=== PATIENT | male | born 2000 | race Caucasian/White ===

== ENCOUNTER 2023-01-14 06:43 | Observation (INO) | payer OTHER ==
[2023-01-14] MEDS ORDERED: Magnesium 5 GM/10 ML VIAL ONE (07:15)
[2023-01-14] MEDS ORDERED: fentaNYL 50 mcg/mL 1 mL Vial ONE ×2 (07:15→09:11)
[2023-01-14] MEDS ORDERED: Oxymetazoline HCl 0.05% (30 ML BOT) ONE ×2 (07:39→12:22)
[2023-01-14] MEDS ORDERED: EPINEPHrine 1 MG/ML AMP ONE (07:46)
[2023-01-14] MEDS ORDERED: Lidocaine 1% (PF) 30 ML VIAL ONE (07:46)
[2023-01-14] MEDS ORDERED: Bacitracin Zinc Ointment 30 gm TUBE ONE (07:46)
[2023-01-14] MEDS ORDERED: Ferric Subsulfate (ASTRINGYN) 8 GM VIAL ONE (07:46)
[2023-01-14] MEDS ORDERED: Succinylcholine 200 MG/10 ml SYRINGE FS ONE (08:00)
[2023-01-14] MEDS ORDERED: PROPOFOL 200 MG/20 ML VIAL ONE (08:00)
[2023-01-14] MEDS ORDERED: Dexamethasone 20 MG/5 ML VIAL ONE (08:00)
[2023-01-14] MEDS ORDERED: Ondansetron PF 4 MG/2 ML Vial ONE (08:00)
[2023-01-14] MEDS ORDERED: Lidocaine 1% PF 5 ML VIAL ONE (08:00)
[2023-01-14] MEDS ORDERED: methylPREDNISolone Acetate 40 mg/ml Vial ONE (08:17)
[2023-01-14] MEDS ORDERED: Morphine 4 MG/ML VIAL ONE (09:55)
[2023-01-14] MEDS ORDERED: Hydrocodone-Acetamin 15 ML UDCUP ONE (10:22)
[2023-01-14] MEDS ORDERED: Labetalol HCl 100 MG/20 ML VIAL ONE (10:57)
[2023-01-14] MEDS ORDERED: Morphine 2 MG/ML VIAL ONE (12:39)
[2023-01-14] MEDS ORDERED: Silver Nitrate Application 1 EACH ONE (12:51)
[2023-01-14] MEDS ORDERED: Hydrocodone-Acetamin 15 ML UDCUP PO PRN (15:54)
[2023-01-14] MEDS ORDERED: Morphine 2 MG/ML VIAL SLOW IVP PRN (15:55)
[2023-01-14] MEDS ORDERED: Sodium Chloride 0.45% 1,000 ML IV SCH (16:00)
[2023-01-14 16:06] VITALS: BMI 23.5
[2023-01-14] MEDS: Ondansetron ODT 8 MG TAB PO PRN (16:46)
[2023-01-14 17:26] LABS: #Monocytes 0.6 thou/uL (0.11-0.59); #Neutrophils 19.7 thou/uL (1.40-6.50); %Basophils 0.1 % (0.0-1.0); %Lymphocytes 4.4 % (21.0-51.0); %Monocytes 2.9 % (0.0-10.0); %Neutrophils 92.1 % (42.0-75.0); Hematocrit 46.6 % (42.0-52.0); Hemoglobin 16.5 g/dL (14.0-18.0); Mean Corpuscular HGB CONC 35.4 g/dL (32.0-36.0); Mean Corpuscular Hemoglobin 29.6 pg (27.0-31.0); Mean Corpuscular Volume 83.7 fl (78.0-98.0); Mean Platelet Volume 10.5 fL (7.4-10.4); Platelet Count 202 10x3/uL (130-400); RBC Distribution Width 11.4 % (11.5-14.5); Red Blood Cell (RBC) Count 5.57 mill/uL (4.70-6.10); White Blood Cell (WBC) Count 21.4 10x3/uL (4.8-10.8)
[2023-01-14 17:40] LABS: INR-International Normal Ratio 1.1; Prothrombin Time 14.1 sec (12.0-14.7)
[2023-01-14 17:46] LABS: Anion Gap 8 mmol/L (10-20); BUN (Urea Nitrogen) 11 mg/dL (8.9-20.6); Calc. Creatinine Clearance 112 mL/min (70-130); Calcium 9.5 mg/dL (7.8-10.44); Carbon Dioxide 19 mmol/L (22-29); Chloride 105 mmol/L (98-107); Estimated GFR 110; Glucose 173 mg/dL (70-105); Potassium 3.7 mmol/L (3.5-5.1); Sodium 128 mmol/L (136-145)
[2023-01-14] MEDS: Sodium Chloride 0.45% 1,000 ML IV SCH (20:31)
[2023-01-14] MEDS ORDERED: Amoxicillin/Potassium Clav 875 MG TAB PO SCH (21:00)
[2023-01-14] MEDS: Amoxicillin/Potassium Clav 400 mg/5 ml Oral Suspension PO SCH (21:10)
[2023-01-14] MEDS ORDERED: Promethazine HCl 12.5 MG in Sodium Chloride 0.9% 50 ML IVPB SCH (22:30)
[2023-01-15] MEDS: Sodium Chloride 0.45% 1,000 ML IV SCH (03:09)
[2023-01-15 05:48] LABS: #Monocytes 1.4 thou/uL (0.11-0.59); #Neutrophils 16.4 thou/uL (1.40-6.50); %Basophils 0.2 % (0.0-1.0); %Lymphocytes 6.8 % (21.0-51.0); %Monocytes 7.5 % (0.0-10.0); %Neutrophils 85.1 % (42.0-75.0); Hematocrit 45.7 % (42.0-52.0); Mean Corpuscular Hemoglobin 29.7 pg (27.0-31.0); Mean Corpuscular Volume 84.9 fl (78.0-98.0); Mean Platelet Volume 10.7 fL (7.4-10.4); Platelet Count 201 10x3/uL (130-400); RBC Distribution Width 11.7 % (11.5-14.5); Red Blood Cell (RBC) Count 5.38 mill/uL (4.70-6.10); White Blood Cell (WBC) Count 19.2 10x3/uL (4.8-10.8)
[2023-01-15 06:12] LABS: Anion Gap 13 mmol/L (10-20); BUN (Urea Nitrogen) 11 mg/dL (8.9-20.6); Calc. Creatinine Clearance 121 mL/min (70-130); Calcium 9.2 mg/dL (7.8-10.44); Carbon Dioxide 21 mmol/L (22-29); Chloride 106 mmol/L (98-107); Estimated GFR 121; Glucose 141 mg/dL (70-105); Potassium 4.2 mmol/L (3.5-5.1); Sodium 136 mmol/L (136-145)
[2023-01-15 07:45] LABS: Hemoglobin A1c 4.8 % (4.0-6.0)
[2023-01-15] MEDS: Ondansetron ODT 8 MG TAB PO PRN (08:56)
[2023-01-15] MEDS: Amoxicillin/Potassium Clav 400 mg/5 ml Oral Suspension PO SCH (08:58)
[2023-01-15 10:40] VITALS: BP 109/71; TEMP 99.2
== END 2023-01-15 09:58 | disposition home or self-care (01) ==
LOC: SDC 06:43 → T4-A 15:37
PROVIDERS: ADMIT Otolaryngology Plastic Surgery within the Head & Neck; ATTEND Otolaryngology Plastic Surgery within the Head & Neck
PROC: 09BM3ZZ Excision of Nasal Septum, Percutaneous Approach (ICD-10-PCS; principal; 2023-01-15)
PROC: 09TL7ZZ Resection of Nasal Turbinate, Via Natural or Artificial Opening (ICD-10-PCS; 2023-01-15)
PROC: 0CBQ0ZZ Excision of Adenoids, Open Approach (ICD-10-PCS; 2023-01-15)
PROC: 0CTPXZZ Resection of Tonsils, External Approach (ICD-10-PCS; 2023-01-15)
DX: J35.01 Chronic tonsillitis (principal); J35.3 Hypertrophy of tonsils with hypertrophy of adenoids; J34.2 Deviated nasal septum; J34.3 Hypertrophy of nasal turbinates; M95.0 Acquired deformity of nose; G47.33 Obstructive sleep apnea (adult) (pediatric); Q22.0 Pulmonary valve atresia; D72.829 Elevated white blood cell count, unspecified; E87.1 Hypo-osmolality and hyponatremia; G89.18 Other acute postprocedural pain; Z90.89 Acquired absence of other organs
CPT/HCPCS: 36415; 80048; 83036; 85025; 85610; 85730; 88302; 88304; J0171; J1030; J1100; J2001; J2270; J2272; J2405; J2550; J2704; J3010; J3475; Q0162